=== PATIENT | female | born 1990 | race American Indian/Alaskan Native ===

== ENCOUNTER 2016-10-16 15:19 | Emergency (ER) | payer MEDICAID ==
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
[2016-10-16 17:56] VITALS: BP 104/65
== END 2016-10-16 17:55 | disposition home or self-care (01) ==
LOC: ED 15:19
DX: M79.1 Myalgia (principal); F17.210 Nicotine dependence, cigarettes, uncomplicated; V43.52XA Car driver injured in collision with other type car in traffic accident, initial encounter; Y93.89 Activity, other specified; Y92.89 Other specified places as the place of occurrence of the external cause; Y99.8 Other external cause status
CPT/HCPCS: 99282